=== PATIENT | female | born 1980 | race Caucasian/White ===

== ENCOUNTER 2024-04-06 09:21 | Emergency (ER) | payer OTHER, SELFPAY ==
[2024-04-06] VITALS (20 sets, daily range): BP systolic 155–211; BP diastolic 85–118; PULSE 65–99; RESP 12–17; TEMP 36.4–36.9; O2SAT 97–100
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
[2024-04-06 10:31] LABS: Basophils Absolute Auto 0.1 K/mm3 (0.0-0.1); Basophils Percent Auto 0.7 % (0.2-1.2); Eosinophils Absolute Auto 0.1 K/mm3 (0-0.3); Eosinophils Percent Auto 1.3 % (0-4.4); Hematocrit 30.9 % (37.0-47.0); Hemoglobin 9.3 g/dL (12.0-15.0); Immature Granulocyte Absolute 0.01 K/mm3 (0.00-0.031); Immature Granulocyte Percent A 0.1 % (0-0.5); Lymphocytes Absolute Auto 0.85 K/mm3 (0.9-3.2); Lymphocytes Percent Auto 12.5 % (18.3-44.2); Mean Corpuscular HGB Conc 30.1 g/dl (32-36); Mean Corpuscular Hemoglobin 23.6 pg (26-34); Mean Corpuscular Volume 78.4 fl (80-100); Mean Platelet Volume 11.7 fl (7.4-10.4); Monocytes Absolute Auto 0.5 K/mm3 (0.1-0.6); Monocytes Percent Auto 7.1 % (2.6-8.5); Neutrophils Absolute Auto 5.3 K/mm3 (1.3-6.7); Neutrophils Percent Auto 78.3 % (45.5-73.1); Platelet Count Result 226 k/mm3 (150-375); Red Blood Count 3.94 M/mm3 (4.2-5.4); Red Cell Distribution Width 16.4 % (11.5-14.5); White Blood Count 6.8 K/mm3 (4.5-10.0)
[2024-04-06 10:41] LABS: Alanine Aminotransferase 11 U/L (6-35); Albumin Level 3.9 g/dL (3.5-5.1); Alkaline Phosphatase 70 U/L (38-126); Anion Gap 7 mmol/L (4-12); Aspartate Amino Transferase 19 U/L (14-36); Bilirubin,Total 0.4 mg/dL (0.2-1.3); Blood Urea Nitrogen 14 mg/dL (7-17); Calcium 8.6 mg/dL (8.4-10.2); Carbon Dioxide 24 mmol/L (22-30); Chloride 105 mmol/L (98-107); Estimated CRCL calculation 88 ml/min; Estimated Glomerular Filt Rate > 60; Glucose 98 mg/dL (65-110); Potassium 3.6 mmol/L (3.4-5.0); Sodium 136 mmol/L (137-145)
[2024-04-06 10:53] LABS: BEDSIDEPREGUCG Negative (Negative)
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
--- NOTE | 2024-04-06 13:31 | PC.NURSE ---
patient wakes up to stimulation for brief time. unable to stay awake to provide information to RN regarding RNs questions at this time. YASMANY Cruz notified.
[2024-04-06] MEDS: NALOXONE HCL INJ 2 MG/2 ML AMP NASAL (13:34)
[2024-04-06] MEDS: NALOXONE HCL 0.4 MG/ML VIAL IV PUSH (13:51)
[2024-04-06] MEDS: NALOXONE HCL 0.4 MG/ML VIAL (13:54)
--- NOTE | 2024-04-06 14:10 | PC.NURSE ---
patient awakens to verbal stimuli at this time. patient admits to using narcotics this am. explained to patient plan of care at this time. patient agreeable.
[2024-04-06 14:19] LABS: Barbiturate Screen Urine Negative (Negative); Benzodiazepines Screen Urine Negative (Negative)
[2024-04-06 14:22] LABS: Cannabinoid Screen Urine Positive (Negative); Cocaine Screen Urine Negative (Negative); Methadone Screen Urine Negative (Negative); Opiate Screen Urine Negative (Negative); Phencyclidine Screen Urine Negative (Negative)
[2024-04-06 16:12] LABS: Amphetamine Screen Urine Positive (Negative)
== END 2024-04-06 15:02 | disposition home or self-care (01) ==
PROVIDERS: Emergency Provider Physician Assistant
DX: S92.331A Displaced fracture of third metatarsal bone, right foot, initial encounter for closed fracture (principal); S92.341A Displaced fracture of fourth metatarsal bone, right foot, initial encounter for closed fracture; S92.351A Displaced fracture of fifth metatarsal bone, right foot, initial encounter for closed fracture; D64.9 Anemia, unspecified; R03.0 Elevated blood-pressure reading, without diagnosis of hypertension; Z87.891 Personal history of nicotine dependence; M17.11 Unilateral primary osteoarthritis, right knee; M47.812 Spondylosis without myelopathy or radiculopathy, cervical region; V47.5XXA Car driver injured in collision with fixed or stationary object in traffic accident, initial encounter
CPT/HCPCS: 29515; 36415; 70450; 71260; 72125; 73564; 73630; 74177; 80053; 80307; 81025; 85025; 96374; 96375; 99284; J2310; Q9967